=== PATIENT | female | born 2000 | race Two or more races ===

== ENCOUNTER 2018-12-28 11:10 | Inpatient (IN) | payer OTHER ==
[2019-01-26] MEDS ORDERED: FOLIC ACID20 MG PO (15:17)
[2019-01-26] MEDS ORDERED: PRENATAL + DHA1 EAC1 PO (15:17)
== END 2019-01-28 13:50 | disposition home or self-care (01) | DRG 807 ==
LOC: OB/GYN 01-26 07:11 → LDR 01-26 07:11 → OB/GYN 01-26 11:26
PROVIDERS: ADMIT Specialist
PROC: 10E0XZZ Delivery of Products of Conception, External Approach (ICD-10-PCS; principal; 2019-01-26)
PROC: 0UQGXZZ Repair Vagina, External Approach (ICD-10-PCS; 2019-01-26)
PROC: 0W8NXZZ Division of Female Perineum, External Approach (ICD-10-PCS; 2019-01-26)
PROC: 3E033VJ Introduction of Other Hormone into Peripheral Vein, Percutaneous Approach (ICD-10-PCS; 2019-01-26)
PROC: 10907ZC Drainage of Amniotic Fluid, Therapeutic from Products of Conception, Via Natural or Artificial Opening (ICD-10-PCS; 2019-01-26)
PROC: 4A1HXCZ Monitoring of Products of Conception, Cardiac Rate, External Approach (ICD-10-PCS; 2019-01-26)
DX: O71.4 Obstetric high vaginal laceration alone (principal); Z37.0 Single live birth; Z3A.40 40 weeks gestation of pregnancy; Z22.330 Carrier of Group B streptococcus

== ENCOUNTER → 2019-01-11 | Outpatient (CLI) | payer OTHER | END | disposition home or self-care (01) | LOC: PRENATAL 10:30 | DX: O26.843 Uterine size-date discrepancy, third trimester (principal); O36.8131 Decreased fetal movements, third trimester, fetus 1 ==